=== PATIENT | female | born 1975 | race Caucasian/White ===

== ENCOUNTER 2019-11-09 14:14 | Emergency (ER) | payer OTHER, SELFPAY ==
[2019-11-09 14:16] VITALS: BP 116/77; PULSE 115; RESP 20; TEMP 36.8; O2SAT 100
--- NOTE | 2019-11-09 15:39 | ED.ANXIETY ---
HPI - Anxiety General Chief Complaint: Anxiety Stated Complaint: Anxious Time Seen by Provider: 11/09/19 14:17 Source: patient Mode of arrival: ambulatory Limitations: no limitations History of Present Illness HPI narrative: This is a 44-year-old female that presents emergency department for anxiety. Reports a history of schizophrenia and that her medication was changed yesterday. Reports since this morning she has had racing thoughts. Reports she has been having trouble sleeping as well. Denies fever, chest pain, shortness of breath, abdominal pain, vomiting, dysuria, or suicidal or homicidal ideations. Related Data Home Medications Medication Instructions Recorded Confirmed benztropine 1 mg PO DAILY 11/09/19 11/09/19 clonidine HCl 0.1 mg PO DAILY 11/09/19 11/09/19 dextroamphetamine-amphetamine 15 mg PO DAILY 11/09/19 11/09/19 [Adderall] paliperidone 3 mg PO QAM 11/09/19 11/09/19 Allergies Allergy/AdvReac Type Severity Reaction Status Date / Time codeine AdvReac Unknown Other Verified 02/27/18 12:25 Review of Systems Review of Systems: Narrative: CONSTITUTIONAL: Denies fever CARDIOVASCULAR: Denies chest pain RESPIRATORY: Denies cough or dyspnea. GASTROINTESTINAL: Denies abdominal pain, nausea, vomiting GENITOURINARY: Denies dysuria or hematuria. PSYCHIATRIC: Reports anxiety. Denies depression. All systems reviewed & are unremarkable except as noted in HPI and below PMFSH Past Medical History Medical History (Updated 11/09/19 @ 15:44 by Renee Higginbotham PA-C) Schizophrenia Social History Social History (Updated 11/09/19 @ 15:44 by Renee Higginbotham PA-C) Smoking status: Current every day smoker Substance use: never Exam Narrative: Exam Narrative: GENERAL: Well-appearing, well-nourished, and in no acute distress. HEAD: Normocephalic, atraumatic. EYES: EOMI. ENT: Nares clear, no rhinorrhea or epistaxis. Mucous membranes moist. Oropharynx without tonsillar hypertrophy exudate or other lesions. Bilateral TMs pearly garcia non-bulging NECK: Supple. No adenopathy or masses. CHEST: Clear to auscultation. No respiratory distress. No wheezes rales or rhonchi HEART: Regular rate and rhythm. No murmur heard. Normal peripheral pulses. EXTREMITIES: Normal range of motion. No edema. SKIN: Warm, dry, no rash. NEURO: No focal deficits. Alert and oriented x3. PSYCH: Normal mood and affect Course Consultations Consultation #1: Spoke with patient's psychiatrist who would like them to call for follow up for further management of her schizophrenia Date: 11/09/19 Time: 15:44 Vital Signs Vital signs: Vital Signs Temperature 98.3 F 11/09/19 14:16 Pulse Rate 115 H 11/09/19 14:16 Respiratory Rate 20 11/09/19 14:16 Blood Pressure 116/77 11/09/19 14:16 Pulse Oximetry 100 11/09/19 14:16 Temperature 98.3 F 11/09/19 14:16 Pulse Rate 115 H 11/09/19 14:16 Respiratory Rate 11/09/19 14:16 Blood Pressure 116/77 11/09/19 14:16 Pulse Oximetry 100 11/09/19 14:16 MDM - Anxiety MDM Narrative Medical decision making narrative: Patient presents to the ER for anxiety, trouble sleeping and racing thoughts. She has history of schizophrenia. She just saw her psychiatrist yesterday and had a change to her medication. Patient is stable today. She has fianc? present with her. Patient is well-groomed and able to care for herself. She denies any thoughts of harming herself or anyone else. I spoke with her psychiatrist who would like them to call for follow-up and further management of her schizophrenia. Patient and family were given warnings to return to the ER Critical Care Time Critical Care Time Critical Care Time: No Discharge Plan Discharge Clinical Impression: Schizophrenia Qualifiers: Schizophrenia type: unspecified Qualified Code(s): F20.9 - Schizophrenia, unspecified Patient Disposition: Home, Self-Care Condition: Stable Instructions: Schizophrenia (ED) Additional
[2019-11-09 16:14] VITALS: BP 107/71; PULSE 112; RESP 18; TEMP 37.7; O2SAT 100
== END 2019-11-09 16:16 | disposition home or self-care (01) ==
PROVIDERS: Emergency Provider Emergency Medicine; PCP Family Medicine
DX: F20.9 Schizophrenia, unspecified (principal)
CPT/HCPCS: 99281

== ENCOUNTER 2019-11-23 21:37 | Emergency (ER) | payer OTHER, SELFPAY ==
[2019-11-23 21:41] VITALS: BP 129/96; PULSE 96; RESP 20; TEMP 36.4; O2SAT 100
--- NOTE | 2019-11-23 21:49 | ED.PSYCH ---
HPI - Psych General Chief Complaint: Anxiety Stated Complaint: panic attack Time Seen by Provider: 11/23/19 21:48 Source: patient, family and RN notes reviewed Mode of arrival: ambulatory Limitations: no limitations History of Present Illness HPI Narrative: A 44 y/o female presents to the ED after having a panic attack earlier tonight. She states that she was trying to sleep when she began to feel anxious, hot, and developed a dry mouth and heart burn. She reports that she it still having a dry mouth and heart burn at this time but that her other symptoms have resolved. She notes that she had a similar symptom a couple weeks ago and was seen in the ED at that time. She denies any CP, SOB, poor appetite, fevers, or chills. MD complaint: other (Panic attack) Onset (ago): hour(s) (earlier ton) Duration: resolved prior to arrival History of same: Yes Associated psychiatric symptoms: other (feeling anxious (resolved)) Associated symptoms: other (dry mouth, heart burn, and feeling hot (resolved)) Treatments prior to arrival: none Related Data Home Medications Medication Instructions Recorded Confirmed clonidine HCl 0.1 mg PO DAILY 11/09/19 11/09/19 dextroamphetamine-amphetamine 15 mg PO DAILY 11/09/19 11/09/19 [Adderall] benztropine 0.5 mg PO HS 11/23/19 11/23/19 divalproex 500 mg PO Q12H 11/23/19 11/23/19 risperidone 1 mg PO BID 11/23/19 11/23/19 Allergies Allergy/AdvReac Type Severity Reaction Status Date / Time codeine AdvReac Unknown Other Verified 02/27/18 12:25 Review of Systems Review of Systems: All systems reviewed & are unremarkable except as noted in HPI and below Constitutional: Constitutional: Denies chills, Denies fever(s), Denies poor appetite and Reports other (feeling hot (resolved)) ENT: Reports dry mouth Cardiovascular: Cardiovascular: Denies chest pain Respiratory: Respiratory: Denies dyspnea Gastrointestinal: Gastrointestinal: Reports heartburn Psychiatric: Psychiatric: Reports anxiety (resolved) and Reports panic attacks (resolved) PMFSH Past Medical History Medical History Bipolar 1 disorder Depression Gall bladder disease Schizophrenia Surgical History Surgical History History of cholecystectomy History of tonsillectomy Previous section Social History Social History Smoking packs per day: 1 Smoking cigarettes per day: 20.0 Smoking status: Current every day smoker Second hand tobacco smoke exposure: Yes Substance use: never Gender identity (if verbalized by the patient): Female Exam Const: General: healthy appearing and no acute distress Nutritional Appearance: well nourished HENMT: Mouth: Yes lip normal and Yes dry mucous membranes Eyes: Conjunctivae: conjunctivae normal Pupils: Equal, round and reactive pupils present Resp: Effort & Inspection: normal respiratory effort Auscultation: clear to auscultation bilaterally Cardio: Rate: regular rate Rhythm: regular rhythm Heart sounds: no murmurs GI: GI Palp: Yes Soft to palpation and No Tenderness to palpation present (GI) Auscultation: normal bowel sounds Back/Spine/Pelvis: Other: Full ROM. Skin: General skin exam: normal color, dry skin and other (warm) Neuro: General: patient oriented x3 (alert) Speech: normal speech Extrem: General: full ROM Psych: Affect: Anxious affect present Course Vital Signs Vital signs: Vital Signs Temperature 36.4 C L 11/23/19 21:41 Pulse Rate 96 11/23/19 21:41 Respiratory Rate 20 11/23/19 21:41 Blood Pressure 129/96 H 11/23/19 21:41 Pulse Oximetry 100 11/23/19 21:41 Temperature 36.4 C L 11/23/19 21:41 Pulse Rate 76 11/23/19 21:51 Respiratory Rate 25 H 11/23/19 21:51 Blood Pressure 123/88 11/23/19 21:51 Pulse Oximetry 100 11/23/19 21:51 MDM - Psych MDM Narrative Medical decisi
[2019-11-23 21:51] VITALS: BP 123/88; PULSE 76; RESP 25; O2SAT 100
--- NOTE | 2019-11-23 21:59 | ECG_ITS ---
Measurements Intervals [place] Rate: 74 P: 56 MI: 129 QRS: 43 QRSD: 84 T: 6 QT: 373 QTc: 415 Interpretive Statements SINUS RHYTHM RSR' IN V1 OR V2, PROBABLY NORMAL VARIANT MINIMAL Q WAVES- INFERIOR LEADS BORDERLINE ECG Electronically Signed On 11-24-2019 6:56:54 [employer] by Michele Layton D.O.
== END 2019-11-23 22:50 | disposition home or self-care (01) ==
PROVIDERS: Emergency Provider Emergency Medicine
DX: F41.0 Panic disorder [episodic paroxysmal anxiety] (principal); F31.9 Bipolar disorder, unspecified; F20.9 Schizophrenia, unspecified; F17.210 Nicotine dependence, cigarettes, uncomplicated; R94.31 Abnormal electrocardiogram [ECG] [EKG]
CPT/HCPCS: 93005; 99283; A9270